=== PATIENT | female | born 1970 | race Caucasian/White ===

== ENCOUNTER → 2019-08-28 | Outpatient (CLI) | payer BC ==
[~2019-08-28] MED LIST: GALC120S INJ; SUMA100T3 PO; SUMA4PEN2 INJ
[2019-08-28 09:09] LABS: BASOPHILS # (AUTO) 0.03 x10^3/uL (0-0.1); BASOPHILS % (AUTO) 1 % (0-1); EOSINOPHILS # (AUTO) 0.21 x10^3/uL (0-0.4); EOSINOPHILS % (AUTO) 4 % (1-7); LYMPHOCYTES % (AUTO) 35 % (22-44); MD NO; MEAN CORPUSCULAR HEMOGLOBIN 30.5 pg (27.0-34.8); MEAN CORPUSCULAR HGB CONC 33.2 g/dL (32.4-35.8); MEAN CORPUSCULAR VOLUME 91.8 fL (80-100); MEAN PLATELET VOLUME 7.7 fL (7.4-10.4); MONOCYTES # (AUTO) 0.61 x10^3/uL (0.2-0.8); MONOCYTES % (AUTO) 12 % (2-9); NEUTROPHILS # (AUTO) 2.54 x10^3/uL (1.8-6.8); NEUTROPHILS % (AUTO) 49 % (42-75); PLATELET COUNT 351 x10^3/uL (130-400); RED BLOOD COUNT 4.84 x10^6/uL (3.82-5.3); RED CELL DISTRIBUTION WIDTH 13.4 % (9.6-15.2)
[2019-08-28 09:18] LABS: ALBUMIN 3.7 g/dL (3.4-5.0); ANION GAP 7 mmol/L (5-15); CHLORIDE 106 mmol/L (98-107)
[2019-08-28 09:24] LABS: ALANINE AMINOTRANSFERASE 27 U/L (12-78); ALKALINE PHOSPHATASE 46 U/L (45-117); BILIRUBIN,TOTAL 0.6 mg/dL (0.2-1.0); CREATININE 0.98 mg/dL (0.55-1.02); TOTAL PROTEIN 7.5 g/dL (6.4-8.2)
== END | disposition home or self-care (01) ==
LOC: STAR 08:03
PROVIDERS: ATTEND Obstetrics & Gynecology
DX: Z01.818 Encounter for other preprocedural examination (principal); D21.9 Benign neoplasm of connective and other soft tissue, unspecified; N92.0 Excessive and frequent menstruation with regular cycle; N94.6 Dysmenorrhea, unspecified
CPT/HCPCS: 36415; 80053; 84703; 85025

== ENCOUNTER 2019-09-02 10:07 | Observation (INO) | payer BC ==
[~2019-09-02] VITALS: Ht 170.2 cm; Wt 68.0 kg
[~2019-09-02 10:07] MED LIST changes: +BUPIVACAINE/PF 0.25% ONE; +EPINEPHRINE 1 MG/ML, 1ML ONE; +FLUORESCEIN SODIUM 500 MG/5 ML ONE; +FUROSEMIDE 20 MG/2 ML ONE; +LIDOCAINE 1%, 20ML ONE; +MAGNESIUM SULFATE 1 GM/2 ML ONE
[2019-09-02] MEDS ORDERED: LACTATED RINGERS 1,000 ML IV SCH (10:25)
[2019-09-02] MEDS ORDERED: CHLORHEXIDINE 15 ML UDC MM STA (10:25)
[2019-09-02 11:08] LABS: HCG UR SG 1.021 (1.003-1.030)
[2019-09-02] MEDS ORDERED: hydrALAzine 20 MG/ML, 1ML IV PRN (12:00)
[2019-09-02] MEDS ORDERED: LABETALOL 5MG/ML, 20ML IV PRN (12:00)
[2019-09-02] MEDS ORDERED: MIDAZOLAM 1 MG/ML, 2ML IV PRN (12:00)
[2019-09-02] MEDS ORDERED: EPHEDRINE 50 MG/ML, 1ML IM PRN (12:00)
[2019-09-02] MEDS ORDERED: ACETAMINOPHEN 325 MG TABLET PO PRN ×2 (12:00→17:00)
[2019-09-02] MEDS ORDERED: METOCLOPRAMIDE 5 MG/ML, 2ML IVPush PRN (12:00)
[2019-09-02] MEDS ORDERED: HYDROcodone/APAP 7.5-325MG/15ML UDC PO PRN (12:00)
[2019-09-02] MEDS ORDERED: DIPHENHYDRAMINE 50 MG/ML, 1ML IVPush PRN (12:00)
[2019-09-02] MEDS ORDERED: ONDANSETRON 2MG/ML, 2ML IVPush PRN (12:00)
[2019-09-02] MEDS ORDERED: LORazepam 2 MG/ML, 1ML IVPush PRN (12:00)
[2019-09-02] MEDS ORDERED: HALOPERIDOL 5 MG/ML IV PRN (12:00)
[2019-09-02] MEDS ORDERED: ALBUTEROL/IPRATROPIUM 2.5MG/0.5MG, 3 ML NPPB PRN (12:00)
[2019-09-02] MEDS ORDERED: OXYcodone 5 MG/5 ML ORAL.SOL UDC PO PRN (12:00)
[2019-09-02] MEDS ORDERED: KETOROLAC 30 MG/1 ML IVPush PRN (12:00)
[2019-09-02] MEDS ORDERED: MEPERIDINE/PF 25MG/0.5ML IVPush PRN (12:00)
[2019-09-02] MEDS ORDERED: DIAZEPAM 5 MG/ML, 2ML IVPush PRN (12:00)
[2019-09-02] MEDS ORDERED: HYDROmorphone 1 MG/ML, 1ML INJ IVPush PRN (12:00)
[2019-09-02] MEDS ORDERED: SCOPOLAMINE 1MG PATCH TD ONE (12:18)
[2019-09-02] MEDS ORDERED: SCOPOLAMINE 1MG PATCH TD SCH (12:30)
[2019-09-02] MEDS ORDERED: PROPOFOL 10 MG/ML, 20ML ONE (12:32)
[2019-09-02] MEDS ORDERED: MAGNESIUM SULFATE PMX ONE (12:32)
[2019-09-02] MEDS ORDERED: GLYCOPYRROLATE 0.4 MG/2 ML, 2ML ONE (12:32)
[2019-09-02] MEDS ORDERED: ROCURONIUM 10MG/ML,5ML ONE (12:32)
[2019-09-02] MEDS ORDERED: DEXAMETHASONE 4 MG/ML, 1ML ONE (12:32)
[2019-09-02] MEDS ORDERED: CEFAZOLIN 1,000 MG ONE (12:32)
[2019-09-02] MEDS ORDERED: MIDAZOLAM 1 MG/ML, 2ML ONE (12:32)
[2019-09-02] MEDS ORDERED: LIDOCAINE 1%, 2ML ONE (12:32)
[2019-09-02] MEDS ORDERED: FENTANYL PF 100 MCG/2ML ONE (14:23)
[2019-09-02] MEDS ORDERED: KETOROLAC 30 MG/1 ML ONE (14:23)
[2019-09-02] MEDS: FENTANYL PF 100 MCG/2ML IV PRN ×3 (14:25→14:43)
[2019-09-02] MEDS ORDERED: OXYcodone 5 MG/5 ML ORAL.SOL UDC ONE (14:39)
[2019-09-02] MEDS ORDERED: ACETAMINOPHEN 650 MG/20.3 ML UDC ONE (14:39)
[2019-09-02] MEDS ORDERED: OXYC-302 PO (16:57)
[2019-09-02] MEDS ORDERED: IBUP-1222 PO (16:58)
[2019-09-02] MEDS ORDERED: DOCU-131 PO (16:59)
[2019-09-02] MEDS ORDERED: OXYcodone/APAP 5/325MG TABLET PO PRN (17:00)
[2019-09-02] MEDS ORDERED: BISACODYL 10 MG SUPP PR PRN (17:00)
[2019-09-02] MEDS ORDERED: ACETAMINOPHEN 650 MG SUPP PR PRN (17:00)
[2019-09-02] MEDS ORDERED: SUMATRIPTAN 6MG/0.5ML SQ PRN (17:00)
[2019-09-02] MEDS ORDERED: morphine SULFATE 10 MG/ML, 1ML IV PRN (17:00)
[2019-09-02] MEDS ORDERED: SUMATRIPTAN 100 MG TABLET PO PRN (17:00)
[2019-09-02] MEDS ORDERED: ONDANSETRON ODT 4 MG ONE (17:51)
[2019-09-02] MEDS: D5%-LACTATED RINGERS 1,000 ML IV SCH (17:54)
[2019-09-02] MEDS: ONDANSETRON ODT 4 MG PO PRN ×2 (17:54→23:40)
[2019-09-02 18:50] VITALS: BP 135/81
[2019-09-02 19:00] LABS: MEAN CORPUSCULAR HEMOGLOBIN 30.2 pg (27.0-34.8); MEAN CORPUSCULAR VOLUME 91.6 fL (80-100); MEAN PLATELET VOLUME 8.1 fL (7.4-10.4); PLATELET COUNT 345 x10^3/uL (130-400); RED BLOOD COUNT 4.51 x10^6/uL (3.82-5.3)
[2019-09-02 19:13] LABS: MD YES
[2019-09-02 19:15] LABS: BAND#(MANUAL) 1.99 x10^3/uL; BANDS%(MANUAL) 13 % (0-7); LYMPH#(MANUAL) 0.31 x10^3/uL (1-3.4); LYMPHS% (MANUAL) 2 % (22-44); SEG#(MANUAL) 13.01 x10^3/uL (1.8-6.8); SEGS% (MANUAL) 85 % (42-75)
[2019-09-02 19:16] LABS: HYPOCHROMIA 1+
[2019-09-02 19:17] LABS: <PLATELET ESTIMATE> ADEQUATE; <PLT MORPHOLOGY> NORMAL PLT MORPH; OVALOCYTES 1+
[2019-09-02] MEDS ORDERED: PROMETHAZINE 25 MG/ML, 1ML IM PRN ×2 (19:45→21:00)
[2019-09-02] MEDS: DIPHENHYDRAMINE 50 MG/ML, 1ML IVPush PRN (20:54)
[2019-09-02] MEDS: METOCLOPRAMIDE 5 MG/ML, 2ML IVPush SCH (20:56)
[2019-09-02] MEDS: SIMETHICONE 80 MG CHEW TAB PO SCH (21:00)
[2019-09-02] MEDS ORDERED: ZOLPIDEM 5MG TABLET PO PRN (21:00)
[2019-09-02] MEDS: IBUPROFEN 600 MG TABLET PO SCH (21:00)
[2019-09-02] MEDS ORDERED: SENNA/DOCUSATE TABLET PO SCH (21:00)
[2019-09-02] MEDS: DOCUSATE 100 MG CAPSULE PO SCH (21:00)
[2019-09-02] MEDS ORDERED: ONDANSETRON 2MG/ML, 2ML ONE (23:36)
[2019-09-02 23:53] VITALS: BP 131/86
[2019-09-03] MEDS: DIPHENHYDRAMINE 50 MG/ML, 1ML IVPush PRN (00:55)
[2019-09-03] MEDS: D5%-LACTATED RINGERS 1,000 ML IV SCH ×2 (01:05→09:07)
[2019-09-03] MEDS: METOCLOPRAMIDE 5 MG/ML, 2ML IVPush SCH ×2 (03:33→09:09)
[2019-09-03 03:56] VITALS: BP 115/76
[2019-09-03 04:59] LABS: BASOPHILS % (AUTO) 0 % (0-1); EOSINOPHILS % (AUTO) 0 % (1-7); LYMPHOCYTES # (AUTO) 1.09 x10^3/uL (1-3.4); LYMPHOCYTES % (AUTO) 8 % (22-44); MD NO; MEAN CORPUSCULAR HEMOGLOBIN 30.3 pg (27.0-34.8); MEAN CORPUSCULAR VOLUME 91.6 fL (80-100); MEAN PLATELET VOLUME 7.7 fL (7.4-10.4); MONOCYTES # (AUTO) 1.19 x10^3/uL (0.2-0.8); MONOCYTES % (AUTO) 9 % (2-9); NEUTROPHILS # (AUTO) 11.58 x10^3/uL (1.8-6.8); NEUTROPHILS % (AUTO) 84 % (42-75); PLATELET COUNT 324 x10^3/uL (130-400); RED BLOOD COUNT 4.19 x10^6/uL (3.82-5.3); RED CELL DISTRIBUTION WIDTH 13.1 % (9.6-15.2)
[2019-09-03 05:06] LABS: ALBUMIN 3.1 g/dL (3.4-5.0); ANION GAP 5 mmol/L (5-15); CALCIUM 8.1 mg/dL (8.5-10.1); CHLORIDE 110 mmol/L (98-107)
[2019-09-03 05:09] LABS: ALANINE AMINOTRANSFERASE 19 U/L (12-78); ALKALINE PHOSPHATASE 38 U/L (45-117); BILIRUBIN,TOTAL 0.5 mg/dL (0.2-1.0); TOTAL PROTEIN 6.5 g/dL (6.4-8.2)
[2019-09-03] MEDS: IBUPROFEN 600 MG TABLET PO SCH ×2 (06:36→12:07)
[2019-09-03] MEDS: ONDANSETRON ODT 4 MG PO PRN (06:36)
[2019-09-03 07:10] VITALS: BP 110/68
[2019-09-03] MEDS: DOCUSATE 100 MG CAPSULE PO SCH (09:08)
[2019-09-03] MEDS: SIMETHICONE 80 MG CHEW TAB PO SCH (09:08)
[2019-09-03 12:08] VITALS: BP 126/71
== END 2019-09-03 12:45 | disposition home or self-care (01) ==
LOC: OUT 10:07 → 4NE 15:33 → OUT 20:50 → 4NE 20:51 → DCLOUNGE 09-03 12:39
PROVIDERS: ADMIT Obstetrics & Gynecology; ATTEND Obstetrics & Gynecology
DX: Z03.818 Encounter for observation for suspected exposure to other biological agents ruled out (principal); N92.0 Excessive and frequent menstruation with regular cycle; N94.6 Dysmenorrhea, unspecified; D25.1 Intramural leiomyoma of uterus; G43.909 Migraine, unspecified, not intractable, without status migrainosus; Z79.899 Other long term (current) drug therapy; Z98.51 Tubal ligation status
CPT/HCPCS: 36415; 58262; 80053; 81025; 85025; 86850; 86900; 87635; 88307; 96372; 96374; 96375; 96376; G0378; J0171; J0690; J1100; J1200; J1885; J2250; J2270; J2550; J2704; J2765; J3010; J3475; J3490; J7120; J7121; Q0162; J1940